=== PATIENT | male | born 1970 | race Caucasian/White ===

== ENCOUNTER 2019-08-31 20:00 | Inpatient (IN) | payer OTHER ==
[~2019-08-31] VITALS: Ht 167.6 cm; Wt 93.5 kg
[2019-08-31 21:04] LABS: BASOPHIL % 0.2 % (0-2); PLATELET COUNT 283 x10^3mcL (130-400)
[2019-08-31 21:05] LABS: RED CELL DISTRIBUTION WIDTH 15.6 % (11.5-14.5)
[2019-08-31 21:07] LABS: CALCIUM 8.9 mg/dL (8.5-10.1); CARBON DIOXIDE 27.5 mmol/L (21-32); CHLORIDE SERUM 101 mmol/L (98-107); CREATININE SERUM 1.2 mg/dL (0.7-1.3); GFR1 > 60 mL/min; GLUCOSE SERUM 218 mg/dL (74-106); POTASSIUM SERUM 4.7 mmol/L (3.5-5.1); SODIUM SERUM 138 mmol/L (136-145)
[2019-08-31 21:19] LABS: ALKALINE PHOSPHATASE 95 U/L (46-116); ALT/SGPT 52 U/L (16-63); AST/SGOT 19 U/L (15-37); BILIRUBIN TOTAL 0.8 mg/dL (0.20-1.00); LIPASE 107 IU/L (73-393); TOTAL PROTEIN, SERUM 8.2 g/dL (6.4-8.2)
[2019-08-31] MEDS ORDERED: DRAMAMINE LESS25 MG PO (23:09)
[2019-08-31] MEDS ORDERED: ACID REDUCER20 MG PO (23:09)
[2019-08-31] MEDS ORDERED: FORTAMET500 M1 PO (23:09)
[2019-08-31] MEDS ORDERED: ATORVASTATIN CA40 M1 PO (23:09)
[2019-08-31 23:38] VITALS: BP 154/103
[2019-08-31 23:48] VITALS: Ht 167.6 cm; Wt 93.5 kg
[2019-09-01] VITALS (7 sets, daily range): BP systolic 103–125; BP diastolic 66–85
[2019-09-01 06:53] LABS: CALCIUM 7.5 mg/dL (8.5-10.1); CARBON DIOXIDE 27.7 mmol/L (21-32); CHLORIDE SERUM 103 mmol/L (98-107); CREATININE SERUM 1.1 mg/dL (0.7-1.3); GFR1 > 60 mL/min; GLUCOSE SERUM 122 mg/dL (74-106); SODIUM SERUM 138 mmol/L (136-145)
[2019-09-01 06:56] LABS: BASOPHIL % 0.3 % (0-2); PLATELET COUNT 245 x10^3mcL (130-400)
[2019-09-01 07:42] LABS: RED CELL DISTRIBUTION WIDTH 15.6 % (11.5-14.5)
[2019-09-02 05:35] LABS: BASOPHIL % 0.3 % (0-2); CARBON DIOXIDE 28.2 mmol/L (21-32); CHLORIDE SERUM 106 mmol/L (98-107); CREATININE SERUM 1.1 mg/dL (0.7-1.3); GFR1 > 60 mL/min; GLUCOSE SERUM 110 mg/dL (74-106); PLATELET COUNT 221 x10^3mcL (130-400); SODIUM SERUM 142 mmol/L (136-145)
[2019-09-02 05:57] LABS: RED CELL DISTRIBUTION WIDTH 15.7 % (11.5-14.5)
[2019-09-02 06:18] VITALS: BP 102/66
[2019-09-02 09:02] VITALS: BP 96/63
[2019-09-02 10:01] VITALS: BP 102/66
[2019-09-02 13:20] VITALS: BP 118/82
== END 2019-09-02 13:44 | disposition other institution (70) | DRG 381 ==
LOC: ED 20:00 → DU 22:25 → EDBEDREQ 22:25 → DU 23:25
PROVIDERS: Emergency Medicine; Internal Medicine Gastroenterology; ADMIT Internal Medicine
PROC: 0DB18ZX Excision of Upper Esophagus, Via Natural or Artificial Opening Endoscopic, Diagnostic (ICD-10-PCS; 2019-09-01)
PROC: 0DB38ZX Excision of Lower Esophagus, Via Natural or Artificial Opening Endoscopic, Diagnostic (ICD-10-PCS; principal; 2019-09-01 10:15)
PROC: 0DB68ZX Excision of Stomach, Via Natural or Artificial Opening Endoscopic, Diagnostic (ICD-10-PCS; 2019-09-01 10:15)
DX: K22.11 Ulcer of esophagus with bleeding (principal); E87.2 Acidosis; K52.9 Noninfective gastroenteritis and colitis, unspecified; E11.22 Type 2 diabetes mellitus with diabetic chronic kidney disease; G89.29 Other chronic pain; M54.9 Dorsalgia, unspecified; E11.65 Type 2 diabetes mellitus with hyperglycemia; K21.9 Gastro-esophageal reflux disease without esophagitis; N18.9 Chronic kidney disease, unspecified; K44.9 Diaphragmatic hernia without obstruction or gangrene; E78.5 Hyperlipidemia, unspecified; R00.0 Tachycardia, unspecified; Z68.34 Body mass index [BMI] 34.0-34.9, adult; Z88.8 Allergy status to other drugs, medicaments and biological substances; Z79.899 Other long term (current) drug therapy
CPT/HCPCS: 43235; 82962; 87046; 87046-59; C9113; G0378; J1200; J1610; J1956; J2250; J2270; J2310; J2405; J2550; J3010; J3490; J7030; Q0092; Q9967